=== PATIENT | male | born 1995 | race Caucasian/White ===

== ENCOUNTER → 2017-06-30 | Outpatient (CLI) | payer OTHER ==
--- NOTE | 2017-06-30 13:53 | XR ---
EXAMINATION TYPE: XR abdomen 1V DATE OF EXAM: 06/30/2017 COMPARISON: NONE HISTORY: Lower abdominal pain TECHNIQUE: One view abdominal series FINDINGS: The osseous structures are intact. The bowel gas pattern is nonspecific. Retained fecal debris withi n the rectum and right colon. No suspicious calcifications. IMPRESSION: 1. Nonspecific abdomen.
[2017-06-30 14:21] LABS: Basophils # (A) 0.1 k/uL (0-0.2); Basophils % (A) 1 %; Eosinophils # (A) 0.5 k/uL (0-0.7); Eosinophils % (A) 7 %; HCT 49.9 % (39.0-53.0); HGB 15.5 gm/dL (13.0-17.5); Lymphocytes # (A) 2.1 k/uL (1.0-4.8); Lymphocytes % (A) 29 %; MCH 28.4 pg (25.0-35.0); MCHC 31.1 g/dL (31.0-37.0); MCV 91.2 fL (80.0-100.0); Mean Platelet Volume 7.9; Monocytes # (A) 0.5 k/uL (0-1.0); Monocytes % (A) 6 %; Neutrophils # (A) 3.9 k/uL (1.3-7.7); Neutrophils % (A) 54 %; Platelet Count 238 k/uL (150-450); RBC 5.47 m/uL (4.30-5.90); RDW 14.7 % (11.5-15.5); WBC 7.3 k/uL (4.0-11.0)
[2017-06-30 14:56] LABS: ALT 78 U/L (21-72); AST 39 U/L (17-59); Albumin 4.9 g/dL (3.5-5.0); Alkaline Phosphatase 55 U/L (38-126); Anion Gap 13 mmol/L; Blood Urea Nitrogen 13 mg/dL (9-20); C Reactive Protein <5.0 mg/L (<10.0); Calcium 10.1 mg/dL (8.4-10.2); Carbon Dioxide 29 mmol/L (22-30); Chloride 103 mmol/L (98-107); Glucose 99 mg/dL (74-99); Potassium 4.5 mmol/L (3.5-5.1); Sodium 145 mmol/L (137-145); Total Bilirubin 0.4 mg/dL (0.2-1.3); Total Protein 8.7 g/dL (6.3-8.2)
== END | disposition home or self-care (01) ==
LOC: RADXRMAIN 13:37
PROVIDERS: ATTEND Family Medicine
DX: R10.9 Unspecified abdominal pain (principal)
CPT/HCPCS: 74018; 80053; 85025; 86140

== ENCOUNTER 2017-08-05 16:21 | Emergency (ER) | payer OTHER ==
--- NOTE | 2017-08-05 17:55 | ED ---
Male Urogenital HPI - General Chief complaint: Urogenital Stated complaint: Lower Pain Time Seen by Provider: 08/05/17 17:42 Source: patient, RN notes reviewed Mode of arrival: ambulatory Limitations: no limitations - History of Present Illness Initial comments: This is a [id number] who presents with testicular pain which began 3 days ago. The patient states the pain is 10/10 at times, he feels nauseous and there is noticeable swelling. His brother has a history of testicular torsion, so the patient is concerned about having the same issue. Patient does state that he has some burning with urination. He denies, fevers, vomiting, abdominal pain, or diarrhea. - Related Data Home Medications Medication Instructions Recorded Confirmed Ibuprofen [Motrin Ib] 600 mg PO Q6H PRN 08/05/17 08/05/17 Previous Rx's Medication Instructions Recorded Doxycycline Monohydrate [Monodox] 100 mg PO Q12HR #20 cap 08/05/17 Ibuprofen [Motrin] 600 mg PO Q8HR PRN #30 tab 08/05/17 Allergies Allergy/AdvReac Type Severity Reaction Status Date / Time No Known Allergies Allergy Verified 08/05/17 17:43 Review of Systems ROS Statement: Those systems with pertinent positive or pertinent negative responses have been documented in the HPI. ROS Other: All systems not noted in ROS Statement are negative. Past Medical History Past Medical History: No Reported History History of Any Multi-Drug Resistant Organisms: None Reported Past Surgical History: No Surgical Hx Reported Past Psychological History: No Psychological Hx Reported Smoking Status: Never smoker Past Alcohol Use History: None Reported Past Drug Use History: None Reported General Exam Limitations: no limitations General appearance: alert, in no apparent distress Head exam: Present: atraumatic, normocephalic, normal inspection exam: Present: testicular tenderness, urethral discharge (no inguinal lymphadenopathy present, no apparent swelling, no ulcers or suspicious lesions present), other. Absent: scrotal swelling, vertical testicular lie External exam: Present: erythema. Absent: lesions, ecchymosis Neurological exam: Present: alert, oriented X3, CN II-XII intact Psychiatric exam: Present: normal affect Skin exam: Present: warm, dry, intact, normal color. Absent: rash Course Vital Signs 08/05/17 08/05/17 16:31 18:12 Temperature 98.7 F Pulse Rate 84 Respiratory 20 16 Rate Blood Pressure 134/75 O2 Sat by Pulse 99 Oximetry Medical Decision Making - Medical Decision Making 22-year-old male present emergency from for testicular pain. He has slight dysuria. Patient has some WBC, urine mucus bacteria noted. Patient we treated for STDs at this time patient is advised to wear supportive underwear follow-up with urology and return for any worsening symptoms. - Lab Data Lab Results 08/05/17 Range/Units 18:10 Urine Color Yellow Urine Appearance Clear (Clear) Urine pH 6.0 (5.0-8.0) Ur Specific [place] 1.027 (1.001-1.035) Urine Protein 1+ H (Negative) Urine Glucose (UA) Negative (Negative) Urine Ketones Negative (Negative) Urine Blood Negative (Negative) Urine Nitrite Negative (Negative) Urine Bilirubin Negative (Negative) Urine Urobilinogen 2.0 (<2.0) mg/dL Ur Leukocyte Esterase Trace H (Negative) Urine WBC 5 (0-5) /hpf Ur Squamous Epith Cells 3 (0-4) /hpf Amorphous Sediment Rare H (None) /hpf Hyaline Casts 2 (0-2) /lpf Urine Mucus Moderate H (None) /hpf Disposition Clinical Impression: Testicle pain, Orchitis Disposition: HOME SELF-CARE Condition: Stable Instructions: Orchitis (ED) Additional Instructions: Please return to the Emergency Department if symptoms worsen or any other concerns. Prescriptions: Doxycycline Monohydrate [Monodox] 100 mg PO Q12HR #20 cap Ibuprofen [Motrin] 600 mg PO Q8HR PRN #30 tab PRN Reason: Pain Referrals: Elbert Ricardo MD [STAFF PHYSICIAN] - 1-2 days Time of Disposition: 19:23
[2017-08-05 18:13] VITALS: RESP 16
[2017-08-05 18:44] LABS: Amorphous Sediment,Urine Rare /hpf; Appearance,Urine Clear (Clear); Bilirubin,Urine Negative (Negative); Blood,Urine Negative (Negative); Color,Urine Yellow; Glucose,Urine (UA) Negative (Negative); Hyaline Casts,Urine 2 /lpf (0-2); Ketones,Urine Negative (Negative); Leukocyte Esterase,Urine Trace (Negative); Mucus,Urine Moderate /hpf; Nitrite,Urine Negative (Negative); Protein,Urine 1+ (Negative); Specific Gravity,Urine 1.027 (1.001-1.035); Squamous Epithelial Cell,Urine 3 /hpf (0-4); WBC,Urine 5 /hpf (0-5)
--- NOTE | 2017-08-05 18:44 | US ---
EXAMINATION TYPE: US scrotum with doppler. Grayscale and color Doppler Duplex imaging performed of t linda scrotum. DATE OF EXAM: 08/05/2017 COMPARISON: NONE CLINICAL HISTORY: Pain. Pain EXAM MEASUREMENTS: TESTICLES: Right Testicle: 3.7 x 2.1 x 3.1 cm Left Testicle: 4.9 x 2.3 x 3.0 cm EPIDIDYMIS HEAD: Right Epididymis: .8 cm Left Epididymis: .9 cm Doppler performed to assess for testicular vascularity; good bilateral color flow and waveforms are s een. Presence of hydroceles: No Presence of varicoceles: No Bilateral normal color doppler flow seen. Comparison view shows symmetric blood flow to both testicles. Slightly asymmetric right sided scrotal skin thickening is noted. IMPRESSION: Symmetric blood flow to both testicles observed.
[2017-08-05] MEDS ORDERED: cefTRIAXone 250 MG VIAL IM STA (19:26)
[2017-08-05 20:03] VITALS: BP 132/78; PULSE 97; TEMP 98.3
== END 2017-08-05 20:00 | disposition home or self-care (01) ==
LOC: EC 16:21
DX: N45.2 Orchitis (principal)
CPT/HCPCS: 81001; 87491; 87591; 87086; 93975; 76870; 99284; 96372; J0696